=== PATIENT | female | born 1945 | race Caucasian/White ===

== ENCOUNTER 2017-07-27 13:51 | Outpatient (RCR) | payer MEDICARE, OTHER | END 2017-08-13 | LOC: PT 13:51 | PROVIDERS: ATTEND Neurological Surgery | DX: M50.220 Other cervical disc displacement, mid-cervical region, unspecified level (principal); M54.2 Cervicalgia; M62.81 Muscle weakness (generalized) | CPT/HCPCS: 97010 ×2; 97110 ×2; 97140; 97162; G8981; G8982 ==

== ENCOUNTER → 2018-10-26 | Outpatient (CLI) | payer MEDICARE, OTHER | LOC: RAD 13:04 | PROVIDERS: ATTEND Family Medicine | DX: I10 Essential (primary) hypertension (principal) | CPT/HCPCS: 93306 ==